=== PATIENT | female | born 1960 | race Caucasian/White ===

== ENCOUNTER 2018-09-19 19:16 | Emergency (ER) | payer OTHER ==
[~2018-09-19] VITALS: Ht 160 cm; Wt 85.7 kg
[~2018-09-19 19:16] MED LIST: ? CHOLESTEROL MED; ASA81BEC PO; ASPIRIN325 PO; BACTRIM DS TAB1 EACH PO; GARLIC1 EACH PO; GLUCOPHAGE500 MG PO; MULTIVITAMINS PO; NYSTATIN15 GM TP; TRAZODONE 50 MG50 M1 PO; TRAZODONE HCL50 MG PO
[2018-09-19] MEDS ORDERED: AMBIEN 5 MG TABL5 M1 PO (19:27)
[2018-09-19 19:53] LABS: ABSOLUTE BASOPHILS 0.1 thou/uL (0.0-0.2); ABSOLUTE EOSINOPHILS 0.1 thou/uL (0.0-0.7); ABSOLUTE LYMPHOCYTES 3.1 thou/uL (0.8-5.3); ABSOLUTE MONOCYTES 0.4 thou/uL (0.0-1.2); ABSOLUTE NEUTROPHILS 5.5 thou/uL (1.6-8.1); BASOPHILS 0.6 %; EOSINOPHILS 0.9 %; HEMATOCRIT 38.3 % (37.0-47.0); HEMOGLOBIN 12.7 gm/dL (12.0-15.0); MCHC 33.2 g/dL (28.0-37.0); MCV 84.3 fL (80.0-100.0); MONOCYTES 4.9 %; NUCLEATED RBCS 0 /100WBC; PLATELET COUNT* 267 thou/uL (150-400); POLYS 59.6 %; RBC 4.54 mil/uL (4.20-5.00); RDW-CV 14.8 % (10.5-14.5); WBC 9.2 thou/uL (4.0-11.0)
[2018-09-19 20:00] LABS: ANION GAP 10 mmol/L (7-16); BUN 20 mg/dL (7-18); CALCIUM 9.4 mg/dL (8.5-10.1); CHLORIDE 103 mmol/L (98-107); CO2 28 mmol/L (21-32); CREATININE 0.9 mg/dL (0.6-1.3); GLUCOSE 126 mg/dL (70-99); POTASSIUM 3.8 mmol/L (3.5-5.1); SODIUM 141 mmol/L (136-145)
[2018-09-19 20:03] LABS: PROTIME 10.6 Seconds (9.20-11.50)
[2018-09-19 20:11] LABS: ALBUMIN 3.5 g/dL (3.4-5.0); ALKALINE PHOSPHATASE 110 U/L (46-116); NT-PRO BRAIN NAT PEPTIDE 210 pg/mL (<300); SGOT 22 U/L (15-37); SGPT 39 U/L (30-65); TOTAL BILIRUBIN 0.2 mg/dL (<0.1-1.0); TOTAL PROTEIN 7.2 g/dL (6.4-8.2)
[2018-09-19 20:26] LABS: TROPONIN-I LEVEL <0.06 ng/mL (<0.06)
[2018-09-19] MEDS ORDERED: ACYCLOVIR 400400 MG PO (21:36)
[2018-09-19 21:50] VITALS: BP 125/69
--- NOTE | 2018-09-20 15:34 | EKG ---
[place] [address] ELECTROCARDIOGRAM REPORT Name: SWAPNIL WYNN Room: [facility]#: [id number] Admission: 09/19/18 Attend Phys: Discharge: 09/19/18 Date of : 64 Report #: [id number] THIS REPORT FOR: //name// [facility] ED Test Date: 2018-09-19 Test Time: 19:36:16 Pat Name: SWAPNIL WYNN Department: Room: Gender: F Floor Covering Layer: Coy MATHEWS : 1960 Requested By: Kiera Corral Order Number: [id number] MD: Wu Rolle Measurements Intervals Neligh Rate: 93 P: 58 MT: 161 QRS: -56 QRSD: 132 T: 100 QT: 383 QTc: 477 Interpretive Statements Sinus rhythm LVH with IVCD, LAD and secondary repol abnrm Anterior ST elevation, probably due to LVH Compared to ECG 01/21/2014 23:34:17 Intraventricular conduction delay now present Early repolarization now present ST (T wave) deviation now present Electronically Signed On 09-20-2018 15:34:15 [employer]INE [employer] by Wu Rolle [email or web address] <ELECTRONICALLY SIGNED> By: Wu Rolle MD, [facility] 09/20/18 1534 35 35 Wu Rolle MD, [facility] /EPI
== END 2018-09-19 21:50 | disposition home or self-care (01) ==
LOC: M.ERS 19:16
PROVIDERS: Emergency Medicine
DX: G51.0 Bell's palsy (principal); E11.9 Type 2 diabetes mellitus without complications; Z90.49 Acquired absence of other specified parts of digestive tract; Z90.710 Acquired absence of both cervix and uterus; Z86.73 Personal history of transient ischemic attack (TIA), and cerebral infarction without residual deficits